=== PATIENT | female | born 1945 | race Caucasian/White ===

== ENCOUNTER → 2018-01-18 | Outpatient (CLI) | payer OTHER | LOC: M.RAD 01-10 12:51 | DX: M81.0 Age-related osteoporosis without current pathological fracture (principal); R09.89 Other specified symptoms and signs involving the circulatory and respiratory systems; M85.89 Other specified disorders of bone density and structure, multiple sites; Z78.0 Asymptomatic menopausal state ==

== ENCOUNTER → 2021-03-18 | Outpatient (CLI) | payer OTHER | LOC: M.RAD 13:24 | PROVIDERS: ATTEND Family Medicine | DX: M85.88 Other specified disorders of bone density and structure, other site (principal); M81.0 Age-related osteoporosis without current pathological fracture ==